=== PATIENT | female | born 1945 | race Two or more races ===

== ENCOUNTER 2017-10-11 08:30 | Outpatient (CLI) | payer OTHER | END 2017-10-11 12:07 | disposition home or self-care (01) | LOC: SONOGRAMA 08:30 | DX: E04.2 Nontoxic multinodular goiter (principal) ==

== ENCOUNTER 2018-05-10 09:34 | Outpatient (CLI) | payer OTHER | END 2018-05-10 15:57 | disposition home or self-care (01) | LOC: MAMO-SONO 09:34 | DX: Z12.31 Encounter for screening mammogram for malignant neoplasm of breast (principal); Z87.898 Personal history of other specified conditions; N64.4 Mastodynia ==

== ENCOUNTER → 2018-05-10 | Outpatient (CLI) | payer OTHER | END | disposition home or self-care (01) | LOC: NUCLEAR 11:24 | DX: M81.0 Age-related osteoporosis without current pathological fracture (principal) ==

== ENCOUNTER 2018-06-28 07:19 | Outpatient (CLI) | payer OTHER | END 2018-06-28 07:24 | disposition home or self-care (01) | LOC: SONOGRAMA 07:19 | DX: E04.2 Nontoxic multinodular goiter (principal) ==

== ENCOUNTER 2023-01-27 05:14 | Day surgery (SDC) | payer OTHER ==
[~2023-01-27 05:14] MED LIST: CALCIUM500 M1 PO; OSTERA TABLET1 EACH PO; PRESERVISION A1 EAC1 PO; VASOTEC10 MG PO
[2023-01-27] MEDS ORDERED: PERCOCET 5-3251 EACH PO (09:04)
== END 2023-01-27 11:30 | disposition home or self-care (01) ==
LOC: CIR.AMB 05:14
PROVIDERS: ATTEND Surgery
DX: C73 Malignant neoplasm of thyroid gland (principal); Z20.822 Contact with and (suspected) exposure to COVID-19